=== PATIENT | female | born 1955 | race Two or more races ===

== ENCOUNTER 2024-07-07 08:29 | Emergency (ER) | payer OTHER ==
[~2024-07-07] VITALS: Ht 149.9 cm; Wt 61.2 kg
[2024-07-07] MEDS ORDERED: BREO ELLIPTA 51 EACH IH (08:41)
[2024-07-07] MEDS ORDERED: PROAIR RESPICL90 MCG (08:41)
== END 2024-07-07 09:26 | disposition home or self-care (01) ==
LOC: ER 08:31
DX: M79.2 Neuralgia and neuritis, unspecified (principal); R51.9 Headache, unspecified; Z88.6 Allergy status to analgesic agent; Z91.011 Allergy to milk products

== ENCOUNTER 2025-02-24 22:08 | Emergency (ER) | payer OTHER ==
[~2025-02-24] VITALS: Ht 149.9 cm; Wt 61.7 kg
[~2025-02-24 22:08] MED LIST: BREO ELLIPTA 51 EACH IH; PROAIR RESPICL90 MCG
[2025-02-24 22:13] VITALS: BP 122/82; O2SAT 98
[2025-02-25] MEDS ORDERED: ACETAMINOPHEN 500 MG GEL..CAP PO STA (01:42)
[2025-02-25] MEDS ORDERED: GABAPENTIN 300 MG CAPSULE PO STA (01:42)
[2025-02-25] MEDS ORDERED: ACETAMINOPHEN 500 MG GEL..CAP PO ONE (02:04)
[2025-02-25 02:34] LABS: HEMATOCRIT 38.8 % (36.0-45.00); HEMOGLOBIN 12.5 g/dL (12.0-15.00); MEAN CELL VOLUME 97.7 fL (80.00-100.00); MEAN CORPUSCULAR HEMOGLOBIN 31.6 pg (27.00-32.0); MEAN CORPUSCULAR HGB CONC 32.3 g/dl (32.0-36.0); PLATELET COUNT 259 K/uL (150-450); RED BLOOD COUNT 3.97 M/uL (4.00-6.00); RED CELL DISTRIBUTION WIDTH 14.5 % (11.5-14.5)
[2025-02-25 02:41] LABS: INR 0.99; PARTIAL THROMBOPLASTIN TIME 24.2 SECONDS (22.0-34.0); PROTHROMBIN TIME 10.8 SECONDS (9.0-11.5)
[2025-02-25 02:44] LABS: ALBUMIN 3.6 gm/dL (3.4-5.0); BILIRUBIN TOTAL 0.38 mg/dL (0.3-1.2); CALCIUM 9.1 mg/dL (8.5-10.1); CREATININE SERUM 0.76 mg/dL (0.55-1.02); GFR 75.02; GLOBULINA 4.3 G/DL (2.4-3.5); POTASSIUM 3.59 mEq/L (3.5-5.1); TOTAL PROTEIN 7.9 gm/dL (6.4-8.2)
[2025-02-25 02:57] LABS: PH,URINE 5.5 (5.0-8.0); URINE APPEARANCE Clear; URINE BILIRRUBIN Negative (NEGATIVE); URINE BLOOD Negative; URINE COLOR Yellow; URINE GLUCOSE Negative (NEGATIVE); URINE KETONE Negative (NEGATIVE); URINE LEUKOCYTE Trace; URINE NITRATE Negative; URINE PROTEIN Negative (NEGATIVE); URINE UROBILINOGEN 0.2 E.U./dl
[2025-02-25 03:00] LABS: URINE BACTERIA 7.3 uL (0.0-1933); URINE EPITHELIAL CELLS 2.2 uL (0.0-38.8); URINE RBC 7.8 uL (0.0-20.8); URINE WBC 2.9 uL (0.0-23.2)
[2025-02-25] MEDS ORDERED: NEURONTIN300 MG PO (03:48)
== END 2025-02-25 03:51 ==
LOC: ER 22:09
PROVIDERS: General Practice
DX: R51.9 Headache, unspecified (principal); Z88.6 Allergy status to analgesic agent; Z91.011 Allergy to milk products; J45.909 Unspecified asthma, uncomplicated